=== PATIENT | female | born 2000 | race Caucasian/White ===

== ENCOUNTER 2021-06-02 15:21 | Emergency (ER) | payer OTHER ==
--- NOTE | 2021-06-02 16:13 | ERPHSYRPT ---
- History of Present Illness Source: patient Exam Limitations: no limitations Patient Subjective Stated Complaint: Pt states "I woke up this morning and was extremely nauseated. Then my back started to hurt. I have taken two at home tests and one was positive and one was negative. When i peed at [facility] they said there was no blood in it but now I am having some vaginal bleeding." Triage Nursing Assessment: Pt presented alert and oriented X 3, skin wpd Pt a mbulates with an upright steady gait, able to speak in clear full sentences. PT extremely anxious. Physician History: 20 yo wf w lumbar pain x 1 day which is rated an 8/10. She has had nausea wo vomiting/diarrhea. Pt denies dysuria/freq/fever but has mild hematuria/vaginal bleeding. States that 1/2 home preg tests +. Timing/Duration: yesterday Method of Injury: unknown Quality: aching Back Pain Location: lumbar spine Severity of Pain-Max: severe Severity of Pain-Current: severe Modifying Factors: Improves With: movement Associated Symptoms: nausea, lower back pain, No fever, No chills, No sweating, No urinary incontinence, No loss of bowel control, No constipation, No vomiting, No problems urinating, No light-headedness, No dizziness, No numbness in legs/feet, No weakness, No sensory/motor loss, No tingling in legs/feet, No muscle spasms Previous symptoms: no prior history Allergies/Adverse Reactions: No Known Drug Allergies Allergy (Verified 06/02/21 15:41) Home Medications: Sertraline HCl 100 mg PO DAILY 06/02/21 [History] Hx Tetanus, Diphtheria Vaccination/Date Given: No Hx Influenza Vaccination/Date Given: No Hx Pneumococcal Vaccination/Date Given: No Immunizations Up to Date: Yes Travel Risk - International Travel Have you traveled outside of the country in past 3 weeks: No - Coronavirus Screening Are you exhibiting any of the following symptoms?: No Close contact with a COVID-19 positive Pt in past 14-21 Days: No - Vaccine Status Have you recieved a Covid-19 vaccination: Yes 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 - Vaccination Dates Date of 2cond Vaccination (if applicable): 06/2020 - Review of Systems Constitutional: No Symptoms Eyes: No Symptoms Ears, Nose, & Throat: No Symptoms Respiratory: No Symptoms Cardiac: No Symptoms Abdominal/Gastrointestinal: No Symptoms Genitourinary Symptoms: No Symptoms Musculoskeletal: No Symptoms, Back Pain Skin: No Symptoms Neurological: No Symptoms Psychological: No Symptoms Endocrine: No Symptoms Hematologic/Lymphatic: No Symptoms Immunological/Allergic: No Symptoms - Past Medical History Pertinent Past Medical History: Yes Psycho-Social History: Anxiety - Past Surgical History Past Surgical History: Yes Other Surgical History: right labrum. umbilical hernia - Social History Smoking Status: Never smoker Exposure to second hand smoke: No Drug Use: none Patient Lives Alone: Yes Significant Family History: no pertinent family hx - Female History Hx Last Menstrual Period: 04/29/2020 Hx Now: (unknown) - Nursing Vital Signs Nursing Vital Signs: Initial Vital Signs Temperature 98.9 F 06/02/21 15:32 Pulse Rate 96 H 06/02/21 15:32 Respiratory Rate 20 06/02/21 15:32 Blood Pressure 170/105 06/02/21 15:32 O2 Sat by Pulse Oximetry 99 06/02/21 15:32 Pain Scale Pain Intensity [] 7 Pain Intensity 5 Hypertensive - Physical Exam General Appearance: no apparent distress Eye Exam: PERRL/EOMI, eyes nml inspection Ears, Nose, Throat Exam: normal ENT inspection, TMs normal, pharynx normal, moist mucous membranes Neck Exam: normal inspection, non-tender, supple, full range of motion, No meningismus, No mass, No Brudzinski, No Kernig's Respiratory Exam: normal breath sounds, lungs clear, airway intact Cardiovascular Exam: regular rate/rhythm, normal heart sounds, normal peripheral pulses, capillary refill <2 sec, No murmur Gastrointestinal Exam: soft, normal bowel sounds, tenderness (Mild supra-pubic TTP) Back Exam: vertebral tenderness (L-spine TTP), No CVA tenderness Extremity Exam: normal inspection, normal range of motion Peripheral Pulses: carotid (R): 2+, carotid (L): 2+ Neurologic Exam: alert, oriented x 3, cooperative, sand mixer operator II-XII nml as tested, normal mood/affect, nml cerebellar function, nml station & gait, sensation nml Skin Exam: normal color Lymphatic Exam: No adenopathy SpO2 Interpretation: normal SpO2: 99 O2 Delivery: Room Air - Course Nursing assessment & vital signs reviewed: Yes - CT Exams Abdomen/Pelvis CT Interpretation: Tele-radiologist Report (Mild fecal stasis/No stones) Ordered Tests: Active Orders 24 hr Category Date Time Status ABDOMEN AND PELVIS W/0 CONTRAS [CT] Stat Exams 06/02/21 16:21 Completed CULTURE,URINE Stat Lab 06/02/21 15:48 Received HCG,QUALITATIVE URINE Stat Lab 06/02/21 15:48 Completed UA W/RFX UR CULTURE Stat Lab 06/02/21 15:48 Completed Medication Summary Discontinued Medications Generic Name Dose Route Start Last Admin Trade Name Yeyo PRN Reason Stop Dose Admin Ketorolac Tromethamine 30 mg 06/02/21 16:20 06/02/21 16:24 Ketorolac Tromethamine 30 Mg/Ml Inj IM 06/02/21 16:21 30 mg STAT ONE Administration Ketorolac Tromethamine Confirm 06/02/21 16:23 Ketorolac Tromethamine 30 Mg/Ml Inj Administered 06/02/21 16:24 Dose 30 mg .ROUTE .STK-MED ONE Lab/Rad Data: Laboratory Results 06/02/21 06/02/21 Range/Units 15:48 15:48 Urine Color YELLOW (YELLOW) Urine Appearance SLIGHTLY CLOUDY (CLEAR) Urine pH 5.0 (5-6) Ur Specific Nikolski 1.021 (1.005-1.025) Urine Protein 30 (Negative) Urine Ketones NEGATIVE (NEGATIVE) Urine Blood LARGE (0-5) Juan Manuel/ul Urine Nitrite NEGATIVE (NEGATIVE) Urine Bilirubin NEGATIVE (NEGATIVE) Urine Urobilinogen NEGATIVE (0-1) mg/dL Ur Leukocyte Esterase TRACE (NEGATIVE) Urine WBC (Auto) 16-25 (0-5) /HPF Urine RBC (Auto) 6-10 (0-2) /HPF U Hyaline Cast (Auto) 0-2 (0-2) /LPF U Epithel Cells (Auto) RARE (FEW) /HPF Urine Bacteria (Auto) NONE (NEGATIVE) /HPF Urine Mucus (Auto) MODERATE (NEGATIVE) /HPF Urine Culture Reflexed YES (NO) Urine Glucose NEGATIVE (NEGATIVE) mg/dL Urine HCG, Qual NEGATIVE (Negative) - Progress Progress Note: 06/02/21 17:01 30mg IM Toradol Counseled pt/family regarding: lab results, diagnosis, need for follow-up, rad results - Departure Departure Disposition: Home Clinical Impression: UTI (urinary tract infection) Condition: Stable Critical Care Time: No Referrals: JOANN PARKER, RESPIRATORY THERAPIST [Primary Care Provider] - Follow up/PCP as directed Instructions: Low Back Pain (DC), Urinary Tract Infection, Adult (DC) Additional Instructions: Bactrim twice a day for 5 days Toradol as needed for pain Follow up with your family MD Return to ER for increasing pain or temperature greater than 100.5 Prescriptions: Sulfamethoxazole/Trimethoprim [Bactrim Ds Tablet] 1 each PO BID 5 Days #10 ta blet
[2021-06-02 16:16] LABS: Appearance SLIGHTLY CLOUDY (CLEAR); Bilirubin NEGATIVE (NEGATIVE); Blood LARGE Ery/ul (0-5); Epithelial Cells RARE /HPF (FEW); Glucose NEGATIVE (NEGATIVE); Hyaline Casts 0-2 /LPF (0-2); Ketones NEGATIVE (NEGATIVE); Leukocyte Esterase TRACE (NEGATIVE); Mucus MODERATE /HPF (NEGATIVE); Nitrite NEGATIVE (NEGATIVE); Protein,Urine Dip 30 (Negative); Specific Gravity 1.021 (1.005-1.025); Urobilinogen NEGATIVE mg/dL (0-1)
[2021-06-02] MEDS ORDERED: TORAdol 30 mg Injection IM ONE (16:20)
[2021-06-02] MEDS ORDERED: TORAdol 30 mg Injection ONE (16:23)
[2021-06-02 16:30] VITALS: BP 126/83; PULSE 88
--- NOTE | 2021-06-02 16:51 | XRAY ---
Indication: Left flank pain, nausea, and hematuria. Multiple contiguous axial images obtained through the abdomen and pelvis without contrast using renal stone protocol. Comparison: November 16, 2010. Lung bases remain clear again with incidental small left lower lobe calcified granuloma. Heart not enlarged. Stable distal paraesophageal calcified node. No renal calculus or evidence for obstructive uropathy in either system. Noncontrasted stomach and bowel loops appear nonobstructed. Normal appendix. There is mild diffuse scatter colonic fecal debris throughout. Tiny cul-de-sac fluid presumed physiologic from rupture/leaking cyst. No free air. Remaining liver, gallbladder, pancreas, spleen, adrenal glands, kidneys, ureters, bladder, uterus, and aorta are unremarkable for noncontrast exam. Osseous structures intact. No ventral or inguinal hernias. Impression: 1. Negative renal calculus or evidence for obstructive uropathy. 2. Tiny physiologic cul-de-sac fluid and mild diffuse fecal stasis. 3. Again incidental old granulomatous disease. 4. Remaining CT abdomen/pelvis without contrast exam is negative.
[2021-06-02 17:06] VITALS: O2SAT 99
== END 2021-06-02 17:31 | disposition home or self-care (01) ==
LOC: ED 15:21
DX: N39.0 Urinary tract infection, site not specified (principal); M54.50 Low back pain, unspecified; R11.0 Nausea; R31.0 Gross hematuria
CPT/HCPCS: 74176; 81001; 84703; 87086; 96372; 99284; J1885

== ENCOUNTER 2022-08-26 11:40 | Emergency (ER) | payer OTHER ==
--- NOTE | 2022-08-26 12:45 | ERPHSYRPT ---
- History of Present Illness Time Seen by Provider: 08/26/22 12:42 Source: patient Exam Limitations: no limitations Patient Subjective Stated Complaint: pt states I was in the shower today and had a sudden pain with bleeding and clots Triage Nursing Assessment: pt ambulated into the er; pt is axo x4; c/o LLQ pain; tenderness to LLQ; no respiratory distress present; skin PDW; urine yellow and clear; vitals wnl Physician History: Patient is a 21-year-old female presents to emergency department for evaluation of left pelvic pain. Patient states she was in her shower today. Patient had a sudden onset of pain with vaginal bleeding. No trauma. No fever. Patient has a history of irregular menstrual cycles. No associated fever. No nausea vomiting or diarrhea. No rash. Patient is otherwise healthy. Mother at [facility]. They voiced no other complaints or concerns at this time. Portions of this note were created with voice recognition technology. There may be grammatical, spelling, punctuation or sound alike errors Patient declined work-up. She declined pelvic exam, CAT scan. Patient only agreed to a pelvic ultrasound. Timing/Duration: today Severity: moderate Modifying Factors: Improves With: nothing Associated Symptoms: denies symptoms Allergies/Adverse Reactions: No Known Drug Allergies Allergy (Verified 08/26/22 11:48) Home Medications: No Reportable Medications [No Reported Medications] 08/26/22 [History] Hx Tetanus, Diphtheria Vaccination/Date Given: No Hx Influenza Vaccination/Date Given: No Hx Pneumococcal Vaccination/Date Given: No Travel Risk - International Travel Have you traveled outside of the country in past 3 weeks: No - Coronavirus Screening Are you exhibiting any of the following symptoms?: No Close contact with a COVID-19 positive Pt in past 14-21 Days: No - Vaccine Status Have you recieved a Covid-19 vaccination: Yes 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 - Vaccination Dates Date of 2cond Vaccination (if applicable): 06/2020 - Review of Systems Constitutional: No Symptoms, No Fever, No Chills Eyes: No Symptoms Ears, Nose, & Throat: No Symptoms Respiratory: No Symptoms, No Cough, No Dyspnea Cardiac: No Symptoms, No Chest Pain, No Edema, No Syncope Abdominal/Gastrointestinal: No Symptoms, No Abdominal Pain, No Nausea, No Vomiting, No Diarrhea Genitourinary Symptoms: No Symptoms, No Dysuria Musculoskeletal: No Symptoms, No Back Pain, No Neck Pain Skin: No Symptoms, No Rash Neurological: No Symptoms, No Dizziness, No Focal Weakness, No Sensory Changes Psychological: No Symptoms Endocrine: No Symptoms Hematologic/Lymphatic: No Symptoms Immunological/Allergic: No Symptoms All Other Systems: Reviewed and Negative - Past Medical History Pertinent Past Medical History: Yes Neurological History: No Pertinent History ENT History: No Pertinent History Cardiac History: No Pertinent History Respiratory History: No Pertinent History Endocrine Medical History: No Pertinent History Musculoskeletal History: No Pertinent History GI Medical History: No Pertinent History History: No Pertinent History Psycho-Social History: Anxiety, Depression Female Reproductive Disorders: No Pertinent History - Past Surgical History Past Surgical History: Yes Other Surgical History: right labrum. umbilical hernia - Social History Smoking Status: Never smoker Exposure to second hand smoke: No Drug Use: none Patient Lives Alone: No Significant Family History: no pertinent family hx - Female History Hx Now: No - Nursing Vital Signs Nursing Vital Signs: Initial Vital Signs Temperature 97 F 08/26/22 11:49 Pulse Rate 93 H 08/26/22 11:49 Respiratory Rate 14 08/26/22 11:49 Blood Pressure 136/93 08/26/22 11:49 O2 Sat by Pulse Oximetry 99 08/26/22 11:49 Pain Scale Pain Intensity 0 - Physical Exam General Appearance: no apparent distress, alert Eye Exam: PERRL/EOMI, eyes nml inspection Ears, Nose, Throat Exam: normal ENT inspection, TMs normal, pharynx normal, moist mucous membranes Neck Exam: normal inspection, non-tender, supple, full range of motion Respiratory Exam: normal breath sounds, lungs clear, airway intact, No respiratory distress Cardiovascular Exam: regular rate/rhythm, normal heart sounds, normal peripheral pulses Gastrointestinal/Abdomen Exam: soft, normal bowel sounds, other (Tenderness to palpation left pelvis), No tenderness, No mass Back Exam: normal inspection, normal range of motion, No CVA tenderness, No vertebral tenderness Extremity Exam: normal inspection, normal range of motion, pelvis stable Neurologic Exam: alert, oriented x 3, cooperative, normal mood/affect, nml cerebellar function, nml station & gait, sensation nml, No motor deficits Skin Exam: normal color, warm, dry, No rash Lymphatic Exam: No adenopathy SpO2 Interpretation: normal SpO2: 99 O2 Delivery: Room Air - Course Nursing assessment & vital signs reviewed: Yes Ordered Tests: Active Orders 24 hr Category Date Time Status PELVIC [US] Stat Exams 08/26/22 12:39 Completed HCG QUALITATIVE, URINE Stat Lab 08/26/22 12:50 Completed Urine Triage Profile Stat Lab 08/26/22 12:52 Received Lab/Rad Data: Laboratory Results 08/26/22 Range/Units 12:50 Urine HCG, Qual NEGATIVE (NEGATIVE) - Progress Progress: improved Progress Note: 21-year-old female presents to our ED for evaluation of acute onset left pelvic pain and vaginal bleeding. No active vaginal bleeding at this time. Patient declined work-up however she did agree to an ultrasound. Ultrasound reveals a left ovarian cyst measuring 5.9 x 4.7 x 4.7 cm. Patient is aware of the findings. Patient is aware that she has a higher risk of ovarian torsion because of this large cyst. Patient given a referral to Dr. Shultz our WEL[employer]PR[employer] physician. We offered to schedule an appointment in our ED however patient declined. She states she will schedule one after speaking with her mother. Patient states he is ready for discharge. She voices no other complaints or concerns at this time. Test ordered include urinalysis which is pending. Ultrasound and urine . Urine negative. Complexity of problem addressed is low acute uncomplicated. No critical care time. Complexity of data reviewed and analyzed is moderate. Urinalysis pending however will be obtained and reviewed and analyzed by Dr. Orellana. Risk of complication and or risk morbidity/mortality of patient management is minimal. Patient declined pain medication. Patient currently asymptomatic. Patient be discharged home. She agrees to follow-up with [employer] urgently for further evaluation and treatment of this large ovarian cyst. No social determinants of health impede follow-up. Portions of this note were created with voice recognition technology. There may be grammatical, spelling, punctuation or sound alike errors 08/26/22 15:01 Counseled pt/family regarding: lab results, diagnosis, need for follow-up, rad results - Departure Departure Disposition: Home Clinical Impression: Pelvic pain, Vaginal bleeding, Large ovarian cyst Condition: Stable Critical Care Time: No Referrals: JOANN PARKER, QUARANTINE INSPECTOR [Primary Care Provider] - Follow up/PCP as directed NANCY SHULTZ DO [ACTIVE STAFF] - Follow up/PCP as directed Additional Instructions: Discharge/Care Plan PATRICK LAZO was seen on 08/26/22 in the Emergency Room. The patient was counseled regarding Diagnosis,Lab results, Imaging studies, need for follow up and when to return to the Emergency Room. Prescriptions given: Discharge Note I have spoken with the patient and/or caregivers. I have explained the patient's condition, diagnosis and treatment plan based on the information available to me at this time. I have answered the patient's and/or caregiver's questions and addressed any concerns. The patient and/or caregivers have as good understanding of the patient's diagnosis, condition and treatment plan as can be expected at this point. The vital signs have been stable. The patient's condition is stable and appropriate for discharge from the emergency department. The patient will pursue further outpatient evaluation with the primary care physician or other designated or consulting physician as outlined in the discharge instructions. The patient and/or caregivers are agreeable to this plan of care and follow-up instructions have been explained in detail. The patient and/or caregivers have received these instruction. The patient/and or caregivers are aware that any significant change in condition or worsening of symptoms should prompt an immediate return to this or the closest emergency department or call 911.
[2022-08-26 12:55] LABS: HCG URINE TEST NEGATIVE (NEGATIVE)
--- NOTE | 2022-08-26 14:49 | XRAY ---
CLINICAL HISTORY:pain, torsion? COMPARISON:None; TECHNIQUES:Real-time carvajal scale Ultrasound pelvis (transvaginal) was performed; FINDINGS: The uterus is normal in size (7.2 x 3.4 x 4.6 cm), anteverted, and homogeneous in echotexture. The endometrial stripe is normal (0.61 cm). The right ovary is normal in size and echotexture and measures 3.2 x 1.7 x 1.3 cm. The left ovary is occupied by a large cyst with internal echoes is seen measuring 5.87 x 4.66 x 6.87 cm. It shows a soft tissue nodule inside.. Minimal free fluid in cul de sac. IMPRESSION: 1-A complex left ovarian cyst measuring 5.87 x 4.66 x 6.87 cm with soft tissue nodule inside. Advised further correlation with an MR of the pelvis with IV contrast. 2-Minimal pelvic fluid collection. Electronically Signed by: Leela Goodwin MD. (08/26/2022 13:47:04 CHARACTER IMPERSONATOR)
[2022-08-26 15:09] LABS: Appearance Clear (Clear); Bilirubin Negative (Negative); Blood Small (Negative); Glucose, Urine Negative (Negative); Ketones Negative (Negative); Leukocyte Esterase Negative (Negative); Nitrite Negative (Negative); Protein,Urine Dip Negative (Negative); Specific Gravity <=1.005 (1.005-1.030); Urobilinogen 0.2 mg/dL (0.2)
[2022-08-26 15:21] LABS: ADD URINE CULTURE? NO (NO); Bacteria None Seen /HPF (None Seen); Epithelial Cells None Seen /HPF (None Seen); Hyaline Casts NONE SEEN /LPF (0-2); RBC 0-2 /HPF (0-5); WBC 0-2 /HPF (0-5)
[2022-08-26 15:54] VITALS: BP 114/72; PULSE 77; O2SAT 98
== END 2022-08-26 15:55 | disposition home or self-care (01) ==
LOC: ED 11:40
DX: N83.202 Unspecified ovarian cyst, left side (principal); R10.2 Pelvic and perineal pain; N93.9 Abnormal uterine and vaginal bleeding, unspecified
CPT/HCPCS: 36415; 76856; 81001; 81025; 99283

== ENCOUNTER 2022-08-31 06:45 | Day surgery (SDC) | payer OTHER ==
[~2022-08-31 06:45] MED LIST: Sensorcaine 0.25% 10 ML ONE
[2022-08-31] MEDS ORDERED: CEFAZOLIN 2 GM-D5W BAG** 2 GM/50 ML ML IV SCH (07:00)
[2022-08-31 07:01] LABS: HCG URINE TEST NEGATIVE (NEGATIVE)
[2022-08-31] MEDS ORDERED: Lactated Ringers 1,000 ML IV ONE ×2 (07:01→08:04)
[2022-08-31] MEDS ORDERED: CEFAZOLIN 2 GM-D5W BAG** 2 GM/50 ML ML IV ONE (07:05)
[2022-08-31] MEDS: Lactated Ringers 1,000 ML IV SCH ×2 (07:08→08:27)
[2022-08-31] MEDS ORDERED: SUBLIMAZE 100 MCG/2 ML ONE ×2 (08:33→09:52)
[2022-08-31] MEDS ORDERED: DIPRIVAN 200 MG/20 ML IV ONE (08:33)
[2022-08-31] MEDS ORDERED: Versed 2 MG/2 ML Injection ONE (08:33)
[2022-08-31] MEDS ORDERED: Zemuron 100 MG/10 ML ONE (08:33)
[2022-08-31] MEDS ORDERED: Xylocaine-Mpf 2% 5 Ml Vial ONE (08:38)
[2022-08-31] MEDS ORDERED: XYLOCAINE 1%/Epi 1:100000 MDV 20 ML ONE (08:50)
[2022-08-31] MEDS ORDERED: TORAdol 30 mg Injection ONE (09:36)
[2022-08-31] MEDS ORDERED: Zofran 4 MG/2 ML VIAL ONE (09:36)
[2022-08-31] MEDS ORDERED: BRIDION 200MG/2ML IV ONE (09:42)
[2022-08-31] MEDS ORDERED: MORPHINE SULFATE 2 MG INJ ONE ×2 (10:24→10:37)
[2022-08-31 11:20] VITALS: O2SAT 96
[2022-08-31 11:34] VITALS: BP 100/57; PULSE 71
--- NOTE | 2022-09-01 09:15 | OP ---
SURGERY DATE/TIME: 08/31/2022 0833 PREOPERATIVE DIAGNOSIS: Left ovarian cyst and pelvic pain. POSTOPERATIVE DIAGNOSIS: Left ovarian cyst and pelvic pain. PROCEDURE: Laparoscopic left ovarian cystectomy. SURGEON: Jg Shultz D.O. PEDIATRIC DIETICIAN: Shital Bean rn surgical. ANESTHESIA: General. ESTIMATED BLOOD LOSS: Minimal. COMPLICATIONS: None. INDICATIONS: The risks, benefits, indications and alternatives of the procedure were reviewed with the patient prior to procedure. The patient understood the risk of infection, bleeding, bowel injury, bladder injury, ureteral injury, uterine perforation, pelvic infection and thromboembolic disorder associated with this surgery and desires to have this surgery as a possible need to alleviate her current medical condition. DESCRIPTION OF PROCEDURE AND FINDINGS: At this point the patient is taken to the operating room and given general anesthesia. She is placed in the supine position. She was prepped and draped in the usual sterile fashion. The patient has a prior history of umbilical hernia repair therefore a 2 cm incision was made 2 cm above the symphysis pubis where a 5 mm trocar and sleeve were advanced under direct visualization where pneumoperitoneum was obtained with 4 liters CO2 gas. An additional incision was made in the umbilicus at this point where a 5 mm trocar and sleeve were advanced under direct visualization. A third incision was made in left middle quadrant region where a 5 mm trocar and sleeve were advanced under direct visualization. Visualization of the pelvic region appeared to be within normal limits however there appeared to be a left ovarian cyst approximately 6 x 5 cm in dimension with no external excrescences located on the surface. From this point the left adnexa was elevated. A circumferential incision was made on the ovarian cortex with a J-hook. At this point the upper cortex was from the lower cortex and graspers were used to separate the ovarian cortex from the cystic region and was done so without complication removing the cystic portion without complication. From this point, the cyst was drained and suctioning of the cystic content was obtained. The entire cystic portion of the ovary was removed in its entirety without complication. From this point Interceed was then placed on the surface of the ovary and there was minimal bleeding that was noted at the completion. From this point, the right ovary appeared to be within normal limits. At this point all instruments were removed from the patient's abdominal region. The lower incision was closed with 0 Vicryl suture and the subsequent incisions were closed with 4-0 Monocryl suture. The patient was then taken out of anesthesia and was taken to the recovery room in stable condition. All instruments and laps were accounted for x2.
== END 2022-08-31 11:55 | disposition home or self-care (01) ==
LOC: SDC 06:45
PROVIDERS: ATTEND Obstetrics & Gynecology
DX: N83.202 Unspecified ovarian cyst, left side (principal); R10.2 Pelvic and perineal pain
CPT/HCPCS: 81025; 87086; J0690; J1885; J2250; J2270; J2405; J2704; J3010

== ENCOUNTER 2024-07-10 20:49 | Emergency (ER) | payer OTHER ==
[2024-07-10 21:08] VITALS: TEMP 97.4; O2SAT 98
[2024-07-10] MEDS ORDERED: Sodium Chloride 0.9% 1000 ML 1,000 ML ONE (21:11)
[2024-07-10] MEDS: Sodium Chloride 0.9% 1000 ML 1,000 ML IV SCH (21:15)
--- NOTE | 2024-07-10 21:15 | ERPHSYRPT ---
- History of Present Illness Time Seen by Provider: 07/10/24 21:08 Source: patient Exam Limitations: no limitations Patient Subjective Stated Complaint: "I've been weak and feeling like I'm going to black out. I'm 24 weeks and I'm afraid I'm anemic. I had labs yes terday and my iron level was 7". Triage Nursing Assessment: Pt presents to ER with complains of generalized weakness, fatigue, near syncopal episodes. Believes she may be anemic. She is 24 weeks gestation with no previous complications. Pt is alert and oriented x 3. Skin is pale, warm, and dry. Respirations are easy. Complains of intermittent shortness of breath. Complains of intermittent nausea. Denies vomiting or diarrhea. Denies any pain. Denies any bleeding/discharge. Pupils are PERRL. Denies headache. Pt is receiving care w/ Dr. Shultz. Physician History: Patient is a 23-year-old female G2, P1 currently 24 weeks otherwise no significant past medical history presents to our emergency department for evaluation of generalized weakness feeling of near syncope facial tingling. Patient symptoms have been ongoing throughout the evening. Patient states she had her blood drawn as per her [employer] physician . Patient advises that her iron levels are low. Patient's symptoms are constant. No specific worsening or improving factors. Patient denies any issues regarding her . No abdominal or pelvic cramping. No vaginal discharge pain or discomfort. Patient voices no other complaints or concerns at this time. Portions of this note were created with voice recognition technology. There may be grammatical, spelling, punctuation or sound alike errors Timing/Duration: today Severity: moderate Modifying Factors: Improves With: nothing Associated Symptoms: denies symptoms Allergies/Adverse Reactions: No Known Drug Allergies Allergy (Verified 07/10/24 21:07) Home Medications: Vit No.179/Iron/Folic [ Tablet] 1 tab PO DAILY 07/10/24 [History] Sertraline HCl 50 mg [Zoloft 50 mg Tablet] 50 mg PO HS 07/10/24 [History] Hx Tetanus, Diphtheria Vaccination/Date Given: Yes Hx Influenza Vaccination/Date Given: Yes Hx Pneumococcal Vaccination/Date Given: No Immunizations Up to Date: No Travel Risk - International Travel Have you traveled outside of the country in past 3 weeks: No - Emerging Infectious Disease Are you exhibiting symptoms associated with any current EIDs: No - Review of Systems Constitutional: No Symptoms, No Fever, No Chills Eyes: No Symptoms Ears, Nose, & Throat: No Symptoms Respiratory: No Symptoms, No Cough, No Dyspnea Cardiac: No Symptoms, No Chest Pain, No Edema, No Syncope Abdominal/Gastrointestinal: No Symptoms, No Abdominal Pain, No Nausea, No Vomiting, No Diarrhea Genitourinary Symptoms: No Symptoms, No Dysuria Musculoskeletal: No Symptoms, No Back Pain, No Neck Pain Skin: No Symptoms, No Rash Neurological: No Symptoms, No Dizziness, No Focal Weakness, No Sensory Changes Psychological: No Symptoms Endocrine: No Symptoms Hematologic/Lymphatic: No Symptoms Immunological/Allergic: No Symptoms All Other Systems: Reviewed and Negative - Past Medical History Pertinent Past Medical History: Yes Neurological History: No Pertinent History ENT History: No Pertinent History Cardiac History: No Pertinent History Respiratory History: No Pertinent History Endocrine Medical History: No Pertinent History Musculoskeletal History: No Pertinent History GI Medical History: No Pertinent History History: No Pertinent History Psycho-Social History: Anxiety, Depression Female Reproductive Disorders: No Pertinent History - Past Surgical History Past Surgical History: Yes Neuro Surgical History: No Pertinent History Cardiac: No Pertinent History Respiratory: No Pertinent History Gastrointestinal: Hernia Repair, Other Genitourinary: No Pertinent History Musculoskeletal: Orthopedic Surgery Female Surgical History: No Pertinent History Other Surgical History: right labrum. umbilical hernia. midline abdominal hernia repair. ovarian cyst removal. R shoulder surgery Significant Family History: no pertinent family hx - Female History Hx Now: Yes Gestational Age: 24 - Social History Smoking Status: Never smoker Exposure to second hand smoke: No Drug Use: none - Social Determinants of Health Will the patient participate in the screening: Yes Do you worry about a steady place to live?: No Do you have any problems with any of the following?: No known problems In the past 12 months,have you had to go without utilities?: No Transportation Issues: No Has anyone in your support network made you feel unsafe?: No Have you or anyone in your house had to go w/o enough food: No - Nursing Vital Signs Nursing Vital Signs: Initial Vital Signs Temperature 97.4 F 07/10/24 20:53 Pulse Rate 92 H 07/10/24 20:53 Respiratory Rate 22 07/10/24 20:53 Blood Pressure 136/94 07/10/24 20:53 O2 Sat by Pulse Oximetry 98 07/10/24 20:53 Pain Scale Pain Intensity 0 - Physical Exam General Appearance: no apparent distress, alert Eye Exam: PERRL/EOMI, eyes nml inspection Ears, Nose, Throat Exam: normal ENT inspection, TMs normal, pharynx normal, moist mucous membranes Neck Exam: normal inspection, non-tender, supple, full range of motion Respiratory Exam: normal breath sounds, lungs clear, airway intact, No respiratory distress Cardiovascular Exam: regular rate/rhythm, normal heart sounds, normal peripheral pulses Gastrointestinal/Abdomen Exam: soft, normal bowel sounds, other (Gravid abdomen), No tenderness, No mass Back Exam: normal inspection, normal range of motion, No CVA tenderness, No vertebral tenderness Extremity Exam: normal inspection, normal range of motion, pelvis stable Neurologic Exam: alert, oriented x 3, cooperative, normal mood/affect, nml cerebellar function, nml station & gait, sensation nml, No motor deficits Skin Exam: normal color, warm, dry, No rash Lymphatic Exam: No adenopathy SpO2 Interpretation: normal SpO2: 98 O2 Delivery: Room Air - Course Nursing assessment & vital signs reviewed: Yes EKG Interpreted by Me: RATE (91), Sinus Rhythm, NORMAL AXIS, NORMAL INTERVALS, NORMAL QRS Ordered Tests: Active Orders 24 hr Category Date Time Status Fibrous Plasterer STAT Care 07/10/24 21:07 Active EKG-ER Only STAT Care 07/10/24 21:06 Active IV Insertion STAT Care 07/10/24 21:06 Active Pulse Oximetry (ED) STAT Care 07/10/24 21:06 Active CBC W DIFF Stat Lab 07/10/24 21:15 Completed CMP Stat Lab 07/10/24 21:15 Completed Lactic Acid Stat Lab 07/10/24 21:10 Completed POCT GLUCOSE Stat Lab 07/10/24 21:03 Completed TROPONIN Q4H Lab 07/10/24 21:15 Completed TROPONIN Q4H Lab 07/11/24 01:15 Ordered TROPONIN Q4H Lab 07/11/24 05:15 Ordered TSH [TSH, 3RD Generation] Stat Lab 07/10/24 21:15 Completed UA W/RFX UR CULTURE Stat Lab 07/10/24 21:09 Completed VBG [VENOUS BLOOD GAS] Stat Lab 03/18/25 21:10 Completed Medication Summary Generic Name Dose Route Start Last Admin Trade Name Yeyo PRN Reason Stop Dose Admin Sodium Chloride 1,000 mls @ 100 mls/hr 07/10/24 21:15 07/10/24 22:36 Sodium Chloride 0.9% 1000 Ml IV 08/09/24 21:14 999 mls/hr .Q10H [facility] Infusion Lab/Rad Data: Laboratory Result Diagrams 07/10/24 21:15 07/10/24 21:15 Laboratory Results 07/10/24 07/10/24 07/10/24 Range/Units 21:16 21:15 21:15 WBC (3.98-10.04) x10^3/uL RBC (3.93-5.22) x10^6/uL Hgb (11.2-15.7) g/dL Hct (34.1-44.9) % MCV (79.4-94.8) fL MCH (25.6-32.2) pg MCHC (32.2-35.5) g/dL RDW (11.7-14.4) % Plt Count (182-369) x10^3/uL MPV (9.4-12.3) fL Gran % (34.0-71.1) % Immature Gran % (Auto) (0.001-0.429) % Nucleat RBC Rel Count (0.00-0.2) % Eos # (Auto) (0.04-0.36) x10^3/uL Immature Gran # (Auto) (0.001-0.031) x10^3u/L Absolute Lymphs (auto) (1.18-3.74) x10^3/uL Absolute Monos (auto) (0.24-0.86) x10^3/uL Absolute Nucleated RBC (0.00-0.012) x10^3u/L Lymphocytes % (19.3-51.7) % Monocytes % (4.7-12.5) % Eosinophils % (0.7-5.8) % Basophils % (0.1-1.2) % Absolute Granulocytes (1.56-6.13) x10^3/uL Basophils # (0.01-0.08) x10^3/uL pO2/FiO2 Ratio % VBG pH (7.32-7.42) VBG pCO2 at Pat Temp (42-55) mm/Hg VBG pO2 at Pat Temp (25-40) mm/Hg VBG HCO3 (22-28) meq/L VBG O2 Sat (Jourdan) (95-100) VBG Base Excess (-2.0-2.0) VBG Hemoglobin VBG Carboxyhemoglobin (0.0-6.9) % T HGB POC Potassium (3.5-5.1) Sodium 136 (135-145) mmol/L Potassium 3.9 (3.5-5.1) mmol/L Chloride 105 (98-107) mmol/L Carbon Dioxide 18 L (22-30) mmol/L Anion Gap 16.2 H (5-15) MEQ/L BUN 9 (7-17) mg/dL Creatinine 0.56 (0.52-1.04) mg/dL Estimated GFR 131.4 ML/MIN Glucose 88 (74-106) mg/dL POC Glucometer (74 to 106) mg/dL Lactic Acid (0.4-2.0) Calcium 9.2 (8.4-10.2) mg/dL Total Bilirubin 0.60 (0.2-1.3) mg/dL AST 23 (14-36) U/L ALT 17 (0-35) U/L Alkaline Phosphatase 65 (38-126) U/L Troponin I < 0.012 (0.000-0.033) ng/mL Serum Total Protein 6.8 (6.3-8.2) g/dL Albumin 3.9 (3.5-5.0) g/dL TSH 3rd Generation (0.470-4.680) mIU/L Urine Color (Yellow) Urine Appearance (Clear) Urine pH (4.6-8.0) Ur Specific [place] (1.005-1.030) Urine Protein (Negative) Urine Glucose (UA) (Negative) mg/dL Urine Ketones (Negative) Urine Blood (Negative) Urine Nitrite (Negative) Urine Bilirubin (Negative) Urine Urobilinogen (0.2) mg/dL Ur Leukocyte Esterase (Negative) U Hyaline Cast (Auto) (0-2) /LPF Urine Microscopic RBC (0-5) /HPF Urine Microscopic WBC (0-5) /HPF Ur Epithelial Cells (None Seen) /HPF Urine Bacteria (None Seen) /HPF Urine Culture Reflexed (NO) Influenza Type A Ag NEGATIVE (NEGATIVE) Influenza Type B Ag NEGATIVE (NEGATIVE) RSV (PCR) NEGATIVE (NEGATIVE) SARS-CoV-2 (PCR) NEGATIVE (NEGATIVE) 07/10/24 07/10/24 07/10/24 Range/Units 21:15 21:15 21:10 WBC 10.8 H (3.98-10.04) x10^3/uL RBC 4.24 (3.93-5.22) x10^6/uL Hgb 12.8 (11.2-15.7) g/dL Hct 37.6 (34.1-44.9) % MCV 88.7 (79.4-94.8) fL MCH 30.2 (25.6-32.2) pg MCHC 34.0 (32.2-35.5) g/dL RDW 12.5 (11.7-14.4) % Plt Count 253 (182-369) x10^3/uL MPV 10.5 (9.4-12.3) fL Gran % 66.5 (34.0-71.1) % Immature Gran % (Auto) 0.7 H (0.001-0.429) % Nucleat RBC Rel Count 0.0 (0.00-0.2) % Eos # (Auto) 0.28 (0.04-0.36) x10^3/uL Immature Gran # (Auto) 0.08 H (0.001-0.031) x10^3u/L Absolute Lymphs (auto) 2.46 (1.18-3.74) x10^3/uL Absolute Monos (auto) 0.78 (0.24-0.86) x10^3/uL Absolute Nucleated RBC 0.00 (0.00-0.012) x10^3u/L Lymphocytes % 22.7 (19.3-51.7) % Monocytes % 7.2 (4.7-12.5) % Eosinophils % 2.6 (0.7-5.8) % Basophils % 0.3 (0.1-1.2) % Absolute Granulocytes 7.21 H (1.56-6.13) x10^3/uL Basophils # 0.03 (0.01-0.08) x10^3/uL pO2/FiO2 Ratio % VBG pH (7.32-7.42) VBG pCO2 at Pat Temp (42-55) mm/Hg VBG pO2 at Pat Temp (25-40) mm/Hg VBG HCO3 (22-28) meq/L VBG O2 Sat (Jourdan) (95-100) VBG Base Excess (-2.0-2.0) VBG Hemoglobin VBG Carboxyhemoglobin (0.0-6.9) % T HGB POC Potassium (3.5-5.1) Sodium (135-145) mmol/L Potassium (3.5-5.1) mmol/L Chloride (98-107) mmol/L Carbon Dioxide (22-30) mmol/L Anion Gap (5-15) MEQ/L BUN (7-17) mg/dL Creatinine (0.52-1.04) mg/dL Estimated GFR ML/MIN Glucose (74-106) mg/dL POC Glucometer (74 to 106) mg/dL Lactic Acid 1.5 (0.4-2.0) Calcium (8.4-10.2) mg/dL Total Bilirubin (0.2-1.3) mg/dL AST (14-36) U/L ALT (0-35) U/L Alkaline Phosphatase (38-126) U/L Troponin I (0.000-0.033) ng/mL Serum Total Protein (6.3-8.2) g/dL Albumin (3.5-5.0) g/dL TSH 3rd Generation 3.091 (0.470-4.680) mIU/L Urine Color (Yellow) Urine Appearance (Clear) Urine pH (4.6-8.0) Ur Specific [place] (1.005-1.030) Urine Protein (Negative) Urine Glucose (UA) (Negative) mg/dL Urine Ketones (Negative) Urine Blood (Negative) Urine Nitrite (Negative) Urine Bilirubin (Negative) Urine Urobilinogen (0.2) mg/dL Ur Leukocyte Esterase (Negative) U Hyaline Cast (Auto) (0-2) /LPF Urine Microscopic RBC (0-5) /HPF Urine Microscopic WBC (0-5) /HPF Ur Epithelial Cells (None Seen) /HPF Urine Bacteria (None Seen) /HPF Urine Culture Reflexed (NO) Influenza Type A Ag (NEGATIVE) Influenza Type B Ag (NEGATIVE) RSV (PCR) (NEGATIVE) SARS-CoV-2 (PCR) (NEGATIVE) 07/10/24 07/10/24 07/10/24 Range/Units 21:10 21:09 21:03 WBC (3.98-10.04) x10^3/uL RBC (3.93-5.22) x10^6/uL Hgb (11.2-15.7) g/dL Hct (34.1-44.9) % MCV (79.4-94.8) fL MCH (25.6-32.2) pg MCHC (32.2-35.5) g/dL RDW (11.7-14.4) % Plt Count (182-369) x10^3/uL MPV (9.4-12.3) fL Gran % (34.0-71.1) % Immature Gran % (Auto) (0.001-0.429) % Nucleat RBC Rel Count (0.00-0.2) % Eos # (Auto) (0.04-0.36) x10^3/uL Immature Gran # (Auto) (0.001-0.031) x10^3u/L Absolute Lymphs (auto) (1.18-3.74) x10^3/uL Absolute Monos (auto) (0.24-0.86) x10^3/uL Absolute Nucleated RBC (0.00-0.012) x10^3u/L Lymphocytes % (19.3-51.7) % Monocytes % (4.7-12.5) % Eosinophils % (0.7-5.8) % Basophils % (0.1-1.2) % Absolute Granulocytes (1.56-6.13) x10^3/uL Basophils # (0.01-0.08) x10^3/uL pO2/FiO2 Ratio 21.0 % VBG pH 7.43 H (7.32-7.42) VBG pCO2 at Pat Temp 31 L (42-55) mm/Hg VBG pO2 at Pat Temp 57 H (25-40) mm/Hg VBG HCO3 20.6 L (22-28) meq/L VBG O2 Sat (Jourdan) 90.1 L (95-100) VBG Base Excess -2.7 L (-2.0-2.0) VBG Hemoglobin 13.5 VBG Carboxyhemoglobin 2.2 (0.0-6.9) % T HGB POC Potassium 3.7 (3.5-5.1) Sodium (135-145) mmol/L Potassium (3.5-5.1) mmol/L Chloride (98-107) mmol/L Carbon Dioxide (22-30) mmol/L Anion Gap (5-15) MEQ/L BUN (7-17) mg/dL Creatinine (0.52-1.04) mg/dL Estimated GFR ML/MIN Glucose (74-106) mg/dL POC Glucometer 90 (74 to 106) mg/dL Lactic Acid (0.4-2.0) Calcium (8.4-10.2) mg/dL Total Bilirubin (0.2-1.3) mg/dL AST (14-36) U/L ALT (0-35) U/L Alkaline Phosphatase (38-126) U/L Troponin I (0.000-0.033) ng/mL Serum Total Protein (6.3-8.2) g/dL Albumin (3.5-5.0) g/dL TSH 3rd Generation (0.470-4.680) mIU/L Urine Color Yellow (Yellow) Urine Appearance Clear (Clear) Urine pH 6.0 (4.6-8.0) Ur Specific [place] <=1.005 (1.005-1.030) Urine Protein Negative (Negative) Urine Glucose (UA) Negative (Negative) mg/dL Urine Ketones Negative (Negative) Urine Blood Negative (Negative) Urine Nitrite Negative (Negative) Urine Bilirubin Negative (Negative) Urine Urobilinogen 0.2 (0.2) mg/dL Ur Leukocyte Esterase Negative (Negative) U Hyaline Cast (Auto) NONE SEEN (0-2) /LPF Urine Microscopic RBC 0-2 (0-5) /HPF Urine Microscopic WBC 0-2 (0-5) /HPF Ur Epithelial Cells None Seen (None Seen) /HPF Urine Bacteria None Seen (None Seen) /HPF Urine Culture Reflexed NO (NO) Influenza Type A Ag (NEGATIVE) Influenza Type B Ag (NEGATIVE) RSV (PCR) (NEGATIVE) SARS-CoV-2 (PCR) (NEGATIVE) - Progress Progress: improved Progress Note: I spoke to who feels that everything is normal and the patient should be okay for discharge. 07/10/24 22:29 23-year-old female currently 24 weeks presents to our ED with generalized weakness facial tingling and near syncope. No chest pain or shortness of breath. Physical exam unremarkable. Preliminary workup negative. IV fluids administered. Patient currently asymptomatic. We will place a Holter monitor for further evaluation and treatment. No indication for further workup at this time. Will discharge home. Patient agrees to follow-up with her primary care doctor within 48 hours for reevaluation. Portions of this note were created with voice recognition technology. There may be grammatical, spelling, punctuation or sound alike errors Complexity of problem addressed is moderate acute complicated. No critical care time. Complexity of data reviewed analyzes extensive. Test ordered chest reviewed results analyzed and correlated clinically with history and physical exam. Management discussed with patient's hand launderer. Risk of complication and or risk of morbidity/mortality of patient management is low. Vital stable. Time spent to discharge patient is approximately 15 minutes. Plan of care established for shared decision making. No social determinants of health present to impede follow-up. Portions of this note were created with voice recognition technology. There may be grammatical, spelling, punctuation or sound alike errors 07/10/24 22:59 07/10/24 23:01 Counseled pt/family regarding: lab results, diagnosis - Departure Departure Disposition: Home Clinical Impression: Generalized weakness, Near syncope, Facial tingling Condition: Stable Critical Care Time: No Referrals: JOANN PARKER, [facility] [Primary Care Provider] - Follow up/PCP as directed Additional Instructions: Discharge/Care Plan VIOLETGILISABEL PORTER was seen on 07/10/24 in the Emergency Room. The patient was counseled regarding Diagnosis,Lab results, Imaging studies, need for follow up and when to return to the Emergency Room. Prescriptions given: Discharge Note I have spoken with the patient and/or caregivers. I have explained the patient's condition, diagnosis and treatment plan based on the information available to me at this time. I have answered the patient's and/or caregiver's questions and addressed any concerns. The patient and/or caregivers have as good understanding of the patient's diagnosis, condition and treatment plan as can be expected at this point. The vital signs have been stable. The patient's condition is stable and appropriate for discharge from the emergency department. The patient will pursue further outpatient evaluation with the primary care physician or other designated or consulting physician as outlined in the discharge instructions. The patient and/or caregivers are agreeable to this plan of care and follow-up instructions have been explained in detail. The patient and/or caregivers have received these instruction. The patient/and or caregivers are aware that any significant change in condition or worsening of symptoms should prompt an immediate return to this or the closest emergency department or call 911.
[2024-07-10 21:19] LABS: VBG BASE EXCESS -2.7 (-2.0-2.0); VBG CARBOXYHEMOGLOBIN 2.2 % T HGB (0.0-6.9); VBG HCO3- 20.6 meq/L (22-28); VBG HEMOGLOBIN 13.5; VBG O2 SATURATION 90.1 (95-100); VBG POTASSIUM 3.7 (3.5-5.1); VBG pH 7.43 (7.32-7.42)
[2024-07-10 21:20] LABS: Absolute Neutrophil Ct (ANC) 7.21 x10^3/uL (1.56-6.13); BASOPHIL % 0.3 % (0.1-1.2); Basophil (Absolute #) 0.03 x10^3/uL (0.01-0.08); Eosinophil % 2.6 % (0.7-5.8); Eosinophil (Absolute #) 0.28 x10^3/uL (0.04-0.36); Hematocrit 37.6 % (34.1-44.9); Hemoglobin 12.8 g/dL (11.2-15.7); IMMATURE GRAN # 0.08 x10^3u/L (0.001-0.031); IMMATURE GRAN % 0.7 % (0.001-0.429); Lymphocyte (Absolute #) 2.46 x10^3/uL (1.18-3.74); Lymphocytes % 22.7 % (19.3-51.7); Mean Cell Volume 88.7 fL (79.4-94.8); Mean Corpuscular Hemoglobin 30.2 pg (25.6-32.2); Mean Platelet Volume 10.5 fL (9.4-12.3); Monocyte (Absolute #) 0.78 x10^3/uL (0.24-0.86); Monocytes % 7.2 % (4.7-12.5); Neutrophil % 66.5 % (34.0-71.1); Platelet Count 253 x10^3/uL (182-369); Red Blood Count 4.24 x10^6/uL (3.93-5.22); Red Cell Distribution Width 12.5 % (11.7-14.4); White Blood Count 10.8 x10^3/uL (3.98-10.04)
[2024-07-10 21:35] LABS: Appearance Clear (Clear); Bacteria None Seen /HPF (None Seen); Bilirubin Negative (Negative); Blood Negative (Negative); Epithelial Cells None Seen /HPF (None Seen); Glucose, Urine Negative (Negative); Hyaline Casts NONE SEEN /LPF (0-2); Ketones Negative (Negative); Leukocyte Esterase Negative (Negative); Nitrite Negative (Negative); Protein,Urine Dip Negative (Negative); RBC 0-2 /HPF (0-5); Specific Gravity <=1.005 (1.005-1.030); Urobilinogen 0.2 mg/dL (0.2); WBC 0-2 /HPF (0-5)
[2024-07-10 21:40] LABS: ALBUMIN 3.9 g/dL (3.5-5.0); ANION GAP 16.2 MEQ/L (5-15); BILIRUBIN,TOTAL 0.6 mg/dL (0.2-1.3); Calcium 9.2 mg/dL (8.4-10.2); Creatinine 1 0.56 mg/dL (0.52-1.04); EST GLOMERULAR FILTRATION RATE 131.4 ML/MIN; Potassium 3.9 mmol/L (3.5-5.1); Total Protein 6.8 g/dL (6.3-8.2)
[2024-07-10 22:09] LABS: INFLUENZA A NEGATIVE (NEGATIVE); INFLUENZA B NEGATIVE (NEGATIVE); RESPIRATORY SYNCTIAL VIRUS NEGATIVE (NEGATIVE); SARS-CoV-2 Xpert Express NEGATIVE (NEGATIVE)
[2024-07-10 23:10] VITALS: BP 108/66; PULSE 82; RESP 20
== END 2024-07-10 23:35 | disposition home or self-care (01) ==
LOC: ED 20:49
DX: R53.1 Weakness (principal); R55 Syncope and collapse; R20.2 Paresthesia of skin; Z79.899 Other long term (current) drug therapy; Z33.1 Pregnant state, incidental
CPT/HCPCS: 0241U; 36415; 80053; 81001; 82805; 82947; 83605; 84443; 84484; 85025; 93005; 93041; 93225; 94760; 96360; 99284